=== PATIENT | male | born 1975 | race Caucasian/White ===

== ENCOUNTER 2019-11-01 19:48 | Inpatient (IN) | payer BC ==
[~2019-11-01] VITALS: Ht 185.4 cm; Wt 93.4 kg
--- NOTE | 2019-11-01 20:05 | NUR ---
PT PRESENTED TO THE ER WITH A C/O FLU LIKE SYMPTOMS, DIZZINESS, WEAKNESS, NAUSEA. PT WAS TRIAGED AND TAKEN TO ER #2. PT WAS ASSISTED BY SECURITY FROM THE CAR TO TRIAGE. PT WAS PLACED ON THE MONITOR AND CONTINUOUS PULSE OX. PT IS C/O SINUS CONGESTION. PT STATED THAT HE FELT LIKE IT WAS HARD TO BREATHE. BILATERAL BREATH SOUNDS NOTED. PT'S O2 SAT IS 94% AND WAS PLACED ON 2L O2 VIA NC. Rosette MARIN PA-C IS AWARE.
[2019-11-01] MEDS ORDERED: ACETAMINOPHEN ES 500 MG TABLET ONE (20:12)
[2019-11-01] MEDS ORDERED: MECLIZINE HCL 25 MG TABLET ONE (20:12)
[2019-11-01] MEDS ORDERED: ONDANSETRON HCL/PF 4 MG/2 ML VIAL ONE ×2 (20:12→23:12)
--- NOTE | 2019-11-01 20:13 | NUR ---
CXR IN PROGRESS AT THE BEDSIDE.
--- NOTE | 2019-11-01 20:20 | NUR ---
IV STARTED AND PT IS REC'ING MEDICATION ORDERED.
[2019-11-01] MEDS ORDERED: ACETAMINOPHEN ES 500 MG TABLET PO ONE (20:30)
[2019-11-01] MEDS ORDERED: MECLIZINE HCL 12.5 MG TABLET PO ONE (20:30)
[2019-11-01] MEDS ORDERED: IV NS 0.9% 1,000 ML BAG IV ONE ×3 (20:30→23:30)
[2019-11-01] MEDS ORDERED: ONDANSETRON HCL/PF 4 MG/2 ML VIAL IVP ONE (20:30)
[2019-11-01] MEDS ORDERED: hydrALAZINE HCL IV 20 MG VIAL ONE (21:48)
[2019-11-01] MEDS ORDERED: hydrALAZINE HCL IV 20 MG VIAL IV ONE (22:00)
--- NOTE | 2019-11-01 22:03 | NUR ---
PT'S DAD, ENEIDA, CAN BE REACHED AT
--- NOTE | 2019-11-01 22:03 | NUR ---
ENVIRONMENTAL SCIENTIST IS AT THE BEDSIDE.
--- NOTE | 2019-11-01 22:10 | NUR ---
[place]
--- NOTE | 2019-11-01 22:11 | NUR ---
CALLING PT'S FATHER AT PT'S REQUEST.
[2019-11-01 22:12] LABS: BASOPHILS % (AUTO) 0.9 % (0.0-2.0); HEMATOCRIT 41 % (39-51); LYMPHOCYTES # (AUTO) 0.3 /CMM (0.8-4.8); LYMPHOCYTES % (AUTO) 7.5 % (20.0-44.0); MEAN CORPUSCULAR HGB CONC 34 g/dl (31.0-36.0); MEAN CORPUSCULAR VOLUME 91 fL (80-96); MONOCYTES # (AUTO) 0.4 /CMM (0.1-1.30); MONOCYTES % (AUTO) 8.7 % (2.0-12.0); NEUTROPHILS # (AUTO) 3.8 /CMM (1.8-8.9); NEUTROPHILS % (AUTO) 82.9 % (43.0-81.0); PLATELET COUNT (AUTO) 128 /CMM (150-450); RED BLOOD CELL COUNT(AUTO) 4.53 MIL/uL (4.5-6.0); WHITE BLOOD COUNT (AUTO) 4.5 K/uL (4.3-11.0)
[2019-11-01 22:19] LABS: CREATININE 0.9 mg/dL (0.6-1.3); POTASSIUM 4.6 mmol/L (3.5-5.1)
[2019-11-01] MEDS ORDERED: IBUPROFEN 600 MG TABLET PO ONE (22:56)
[2019-11-01] MEDS ORDERED: oxyCODONE/APAP (5/325 MG) 1 UDTAB TABLET ONE (23:12)
[2019-11-01] MEDS ORDERED: LORAZEPAM INJ 2 MG/ML VIAL ONE (23:13)
[2019-11-01] MEDS ORDERED: ONDANSETRON HCL/PF 4 MG/2 ML VIAL IV ONE (23:30)
[2019-11-01] MEDS ORDERED: LORAZEPAM INJ 2 MG/ML VIAL IV ONE (23:30)
[2019-11-01] MEDS ORDERED: oxyCODONE/APAP (5/325 MG) 1 UDTAB TABLET PO ONE (23:30)
--- NOTE | 2019-11-01 23:57 | NUR ---
PT HAS PINK SKIN DISCOLORATION ON ABD AND CHEST AND LEFT HAND TO THE WRIST. B CELESTE MARIN. PT'S ORAL TEMP IS 100.2F
[2019-11-02] MEDS ORDERED: OSELTAMIVIR PHOSPHATE 75 MG CAPSULE ONE (00:13)
[2019-11-02 00:29] LABS: APPEARANCE,URINE Clear (CLEAR); BILIRUBIN,URINE Negative (NEGATIVE); BLOOD, URINE Negative Ery/uL (NEGATIVE); COLOR,URINE Yellow (YELLOW); KETONES,URINE Negative (NEGATIVE); LEUKOCYTE ESTERASE ,URINE Negative (NEGATIVE); NITRITE, URINE Negative (NEGATIVE); PH,URINE 7.5 (5.0-8.0); PROTEIN,URINE Negative (NEGATIVE); UGLUCOSE Negative (NEGATIVE); UROBILINOGEN,URINE 0.2 EU/dL (0.2)
[2019-11-02] MEDS ORDERED: OSELTAMIVIR PHOSPHATE 75 MG CAPSULE PO ONE (00:30)
[2019-11-02] MEDS ORDERED: LABETALOL HCL IV 100MG VIAL ONE (00:49)
--- NOTE | 2019-11-02 00:57 | NUR ---
BED ASSIGNMENT 108
--- NOTE | 2019-11-02 00:58 | NUR ---
PT'S BP IS STILL ELEVATED AND PT IS STILL TACHY. B CELESTE MARIN IS AWARE.
[2019-11-02] MEDS ORDERED: LABETALOL HCL IV 100MG VIAL IV ONE (01:00)
--- NOTE | 2019-11-02 01:28 | NUR ---
CALLED REPORT TO LUCILLE RN. RN IS NOT AVAILABLE.
[2019-11-02] MEDS ORDERED: MAGNESIUM HYDROXIDE 30 ML UDC PO PRN (01:30)
[2019-11-02] MEDS ORDERED: ONDANSETRON HCL/PF 4 MG/2 ML VIAL IVP PRN (01:30)
[2019-11-02] MEDS ORDERED: Z GUARD REMEDY 2 OZ OINT TP PRN (01:30)
[2019-11-02] MEDS ORDERED: MAG HYDROX/AL HYDROX/SIMETH 30 ML UDC PO PRN (01:30)
--- NOTE | 2019-11-02 02:03 | NUR ---
REPORT GIVEN TO MAIKEL SLAUGHTER BY DEBRA, RN
[2019-11-02 02:15] VITALS: BP 123/86
--- NOTE | 2019-11-02 02:15 | NUR ---
RECIEVED PATIENT IN NO ACUTE DISTRESS IN BED. PATIENT IS A/O X 4 AND ABLE TO MAKE NEEDS KNOWN. PATIENT HAS STEADY GAIT. PATIENT IS ON O2 VIA NASAL CANNULA AT 2LPM AND TOLERATING WELL. PATIENT IS NOT C/O ANY SOB, DIFFICULTY BREATHING OR PAIN AT THIS TIME. PATIENT HAS ABNORMAL LUNG SOUNDS IN ALL MORAN. PATINET HAS LEFT AC 18G THAT IS CLEAN DRY INTACT AND PATENT WITH SALINE FLUSH. BED IN LOW LOCK POSITION WITH RAILS UP X 2. CALL LIGHT WITHIN REACH AND ALL SAFETY MEASURES ENSURED AND CARRIED OUT. WILL CONTINUE TO MONITOR PATIENT.
[2019-11-02] MEDS: IV NS 0.9% 1,000 ML IV PRN ×2 (02:36→18:23)
[2019-11-02 04:00] VITALS: BP 121/85
[2019-11-02] MEDS ORDERED: ALBUTEROL HALF STRENGTH 1.25 MG/3 ML VIAL.NEB NEB SCH (07:35)
[2019-11-02] MEDS ORDERED: IPRATROPIUM NEB FS 0.5 MG/2.5 ML AMPUL.NEB NEB SCH (07:35)
[2019-11-02 08:00] VITALS: BP_SYST 142; BP_DIAS 89; BP_DIAS 99
--- NOTE | 2019-11-02 08:00 | NUR ---
TELE1/RN AM SHIFT INITIAL NOTES RECEIVED PT AWAKE SITTING IN BED, A/O X 4, PT DENIES HAVING SOB, ON 2L O2 VIA N/C SATURATING @ 96%, RESPIRATIONS EVEN & UNLABORED, LUNG SOUNDS RHONCHI. ON TELE WITH SINUS TACHY, HR 107. WITH ON GOING IV INFUSION OF NS @ 75CC/HR, IV SITE PATENT WITH NO S/S OF INFECTION. PT IS COMFORTABLE, SCHEDULED AM MEDS TO BE GIVEN. CL WITHIN REACHED AND SAFETY MAINTAINED. ON GOING MONITORING.
[2019-11-02] MEDS ORDERED: VENL150C58 PO (08:31)
[2019-11-02] MEDS ORDERED: ALBU18HF2 IH (08:31)
[2019-11-02] MEDS: AMLODIPINE BESYLATE 2.5 MG TABLET PO SCH (08:44)
[2019-11-02] MEDS: CARVEDILOL 3.125 MG TABLET PO SCH ×2 (08:44→20:44)
[2019-11-02] MEDS: OSELTAMIVIR PHOSPHATE 75 MG CAPSULE PO SCH ×2 (08:44→17:24)
[2019-11-02] MEDS: LISINOPRIL (5MG) 5 MG TABLET PO SCH (08:45)
[2019-11-02] MEDS: LORAZEPAM INJ 2 MG/ML VIAL IV PRN ×2 (09:48→22:14)
--- NOTE | 2019-11-02 11:52 | NUR ---
WOUND CARE CONSULT: PT PRESENTS WITH DRY ABRASIONS TO NOSE, PRESENT ON ADMISSION. PT IS CONTINENT AND INDEPENDENT WITH BED MOBILITY. WILL SEE PRN. CURRENT NHEA SCORE IS 20.
[2019-11-02 12:00] VITALS: BP 147/88
[2019-11-02] MEDS: IPRATROPIUM NEB FS 0.5 MG/2.5 ML AMPUL.NEB NEB PRN (12:03)
[2019-11-02] MEDS: ALBUTEROL HALF STRENGTH 1.25 MG/3 ML VIAL.NEB NEB PRN (12:03)
[2019-11-02] MEDS: ACETAMINOPHEN 325 MG TABLET PO PRN (12:07)
[2019-11-02 16:00] VITALS: BP 139/91
[2019-11-02] MEDS: HYDROCODONE/APAP 5/325MG 1 EACH TABLET PO PRN ×2 (18:12→22:07)
--- NOTE | 2019-11-02 19:18 | NUR ---
RN OPENING NOTES RECEIVED PATIENT SLEEPING IN BED, BUT EASY TO AROUSE, A/OX4, APPEARS SLEEPY. PT DENIES ANY PAIN OR SOB AT THE MOMENT. ON 2L O2 VIA N/C, RESPIRATIONS EVEN & UNLABORED. WITH ON GOING IVF OF NS @ 75CC/HR, IV SITE FLUSHING AND PATENT, NO S/S OF INFECTION. SAFETY MEASURES IN PLACE; CL WITHIN REACH, SIDE RAILS UP X2, BED LOCKED AND IN LOWEST POSITION. DROPLET PRECAUTIONS IN PLACE. WILL CONT TO MONITOR CLOSELY.
--- NOTE | 2019-11-02 19:37 | NUR ---
MS1/RN AM SHIFT END NOTES NO ACUTE CHANGE OF CONDITION NOTED DURING THE SHIFT. ALL NEEDS MET. PT ENDORSED TO PM NURSE TO CONTINUE CARE. CL WITHIN REACHED AND SAFETY MAINTAINED.
[2019-11-02 20:00] VITALS: BP 145/97
--- NOTE | 2019-11-02 20:19 | NUR ---
GAVE REPORT TO MAIKEL BALDERRAMA FOR JUANITA.
--- NOTE | 2019-11-02 20:20 | NUR ---
RN NOTES, RECIVED PATIENT FROM ROOSEVELT KO FOR CONTINUATION OF CARE.
[2019-11-03 02:00] VITALS: BP 154/93
[2019-11-03 04:00] VITALS: BP_SYST 157; BP_SYST 159; BP_DIAS 106; BP_DIAS 99
[2019-11-03] MEDS: HYDROCODONE/APAP 5/325MG 1 EACH TABLET PO PRN (04:40)
[2019-11-03] MEDS: LORAZEPAM INJ 2 MG/ML VIAL IV PRN ×3 (04:41→17:54)
[2019-11-03 06:24] LABS: BASOPHILS % (AUTO) 0.1 % (0.0-2.0); EOSINOPHILS % (AUTO) 0.1 % (0.0-6.0); HEMATOCRIT 40 % (39-51); HEMOGLOBIN 13.6 g/dL (13.5-17.5); LYMPHOCYTES # (AUTO) 0.7 /CMM (0.8-4.8); LYMPHOCYTES % (AUTO) 11.9 % (20.0-44.0); MEAN CORPUSCULAR HGB CONC 34 g/dl (31.0-36.0); MEAN CORPUSCULAR VOLUME 90 fL (80-96); MONOCYTES # (AUTO) 0.5 /CMM (0.1-1.30); MONOCYTES % (AUTO) 7.3 % (2.0-12.0); NEUTROPHILS # (AUTO) 5.1 /CMM (1.8-8.9); NEUTROPHILS % (AUTO) 80.6 % (43.0-81.0); PLATELET COUNT (AUTO) 127 /CMM (150-450); RED BLOOD CELL COUNT(AUTO) 4.42 MIL/uL (4.5-6.0); WHITE BLOOD COUNT (AUTO) 6.3 K/uL (4.3-11.0)
[2019-11-03 06:36] LABS: CALCIUM, SERUM 8.1 mg/dL (8.5-10.1); CREATININE 0.7 mg/dL (0.6-1.3); MAGNESIUM 1.6 mg/dL (1.8-2.4); PHOSPHORUS 1.5 mg/dL (2.5-4.9); POTASSIUM 4.1 mmol/L (3.5-5.1)
--- NOTE | 2019-11-03 06:45 | NUR ---
RN NOTES, NO SIGNIFICANT CHANGE IN CONDITION DURING THE NIGHT, BREATHING EVEN ND UNLABORED, NO SOB/ACUTE DISTRESS NOTED, WITH STABLE VS, WILL ENDORSE CONTINUITY OF CARE TO ONCOMING NURSE.
[2019-11-03 06:46] LABS: THYROID STIMULATING HORMONE 1.044 uIU/mL (0.358-3.74)
[2019-11-03 08:00] VITALS: BP 141/96
--- NOTE | 2019-11-03 08:10 | NUR ---
MS RN NOTES PATIENT RECEIVED RESTING INSIDE ROOM. SLEEPING, AROUSABLE THROUGH VERBAL AND TACTILE STIMULI. NO ACUTE DISTRESS. MAINTAINED ISOLATION PRECAUTIONS. SAFETY PRECAUTIONS IN PLACE. WILL CONTINUE TO MONITOR. BED LOCKED AND IN LOW POSITION. BILATERAL UPPER SIDE RAILS UP AND LOCKED. CALL LIGHT WITHIN EASY REACH
[2019-11-03] MEDS: LISINOPRIL (5MG) 5 MG TABLET PO SCH (08:54)
[2019-11-03] MEDS: IV NS 0.9% 1,000 ML IV PRN (08:54)
[2019-11-03] MEDS: AMLODIPINE BESYLATE 2.5 MG TABLET PO SCH (08:54)
[2019-11-03] MEDS: CARVEDILOL 3.125 MG TABLET PO SCH ×2 (08:54→21:46)
[2019-11-03] MEDS: OSELTAMIVIR PHOSPHATE 75 MG CAPSULE PO SCH ×2 (08:55→16:36)
[2019-11-03] MEDS: Magnesium 1GM/D5W 100ML PREMIX 100 ML IV SCH ×2 (11:08→12:28)
[2019-11-03 12:00] VITALS: BP 146/99
[2019-11-03] MEDS ORDERED: K PHOS NEUTRAL 250 MG TABLET PO ONE (13:00)
[2019-11-03] MEDS: ALBUTEROL HALF STRENGTH 1.25 MG/3 ML VIAL.NEB NEB PRN ×2 (14:11→20:28)
[2019-11-03] MEDS: IPRATROPIUM NEB FS 0.5 MG/2.5 ML AMPUL.NEB NEB PRN ×2 (14:11→20:28)
[2019-11-03 16:00] VITALS: BP 155/90
[2019-11-03] MEDS: ACETAMINOPHEN 325 MG TABLET PO PRN (17:54)
--- NOTE | 2019-11-03 18:23 | NUR ---
MS RN NOTES PATIENT RESTING INSIDE ROOM. AWAKE, A/O X 3. NO ACUTE DISTRESS. PATIENT KEPT CLEAN, DRY AND COMFORTABLE. MAINTAINED ISOLATION PRECAUTIONS. SAFETY PRECAUTIONS IN PLACE. WILL ENDORSE TO INCOMING SHIFT FOR JUANITA. BED LOCKED AND IN LOW POSITION. BILATERAL UPPER SIDE RAILS UP AND LOCKED. CALL LIGHT WITHIN EASY REACH
--- NOTE | 2019-11-03 19:35 | NUR ---
RN OPENING NOTES [facility] FOUND Pt AWAKE, RESTING IN BED. NO S/S OF ACUTE DISTRESS OR SOB NOTED. Pt IS A/OX4, VERBAL, ABLE TO MAKE NEEDS KNOWN. ON ISO FOR + FLU. IV ACCESS ON LAC #18G, IVF NS @75ML/HR. Pt REQUESTING FOR PRN BREATHING TREATMENT. WILL NOTIFY RT. SAFETY MEASURES IN PLACE. BED LOW, LOCKED, HOB ELEVATED, SIDE RAILS UP, CALL LIGHT AND BEDSIDE TABLE WITHIN REACH. WILL CONTINUE TO MONITOR Pt's CONDITION AND SAFETY THROUGHOUT THE NIGHT.
[2019-11-03 20:00] VITALS: BP 154/93
--- NOTE | 2019-11-03 22:10 | NUR ---
RN NOTES PER Pt REPORT DID NOT HAVE A BM FOR THE PAST 3 DAYS. ADMINISTERED PRN MOM 30ML PO.
[2019-11-04] MEDS: LORAZEPAM INJ 2 MG/ML VIAL IV PRN ×3 (00:25→19:55)
[2019-11-04] MEDS: IPRATROPIUM NEB FS 0.5 MG/2.5 ML AMPUL.NEB NEB PRN (02:04)
[2019-11-04] MEDS: ALBUTEROL HALF STRENGTH 1.25 MG/3 ML VIAL.NEB NEB PRN (02:04)
[2019-11-04] MEDS: HYDROCODONE/APAP 5/325MG 1 EACH TABLET PO PRN ×3 (02:45→22:33)
[2019-11-04] MEDS: ALBUTEROL HALF STRENGTH 1.25 MG/3 ML VIAL.NEB NEB SCH ×6 (03:30→23:52)
[2019-11-04] MEDS: IPRATROPIUM NEB FS 0.5 MG/2.5 ML AMPUL.NEB NEB SCH ×6 (03:30→23:52)
[2019-11-04 04:00] VITALS: BP 150/90
[2019-11-04] MEDS: IV NS 0.9% 1,000 ML IV PRN ×2 (04:56→22:29)
[2019-11-04 06:34] LABS: BASOPHILS % (AUTO) 0.1 % (0.0-2.0); EOSINOPHILS % (AUTO) 0.2 % (0.0-6.0); HEMATOCRIT 41 % (39-51); HEMOGLOBIN 14.3 g/dL (13.5-17.5); LYMPHOCYTES # (AUTO) 0.9 /CMM (0.8-4.8); LYMPHOCYTES % (AUTO) 14.2 % (20.0-44.0); MEAN CORPUSCULAR HGB CONC 35 g/dl (31.0-36.0); MEAN CORPUSCULAR VOLUME 88 fL (80-96); MONOCYTES # (AUTO) 0.6 /CMM (0.1-1.30); MONOCYTES % (AUTO) 10.4 % (2.0-12.0); NEUTROPHILS # (AUTO) 4.7 /CMM (1.8-8.9); NEUTROPHILS % (AUTO) 75.1 % (43.0-81.0); PLATELET COUNT (AUTO) 164 /CMM (150-450); RED BLOOD CELL COUNT(AUTO) 4.62 MIL/uL (4.5-6.0); WHITE BLOOD COUNT (AUTO) 6.2 K/uL (4.3-11.0)
[2019-11-04 06:49] LABS: CALCIUM, SERUM 7.9 mg/dL (8.5-10.1); CREATININE 0.8 mg/dL (0.6-1.3); MAGNESIUM 1.9 mg/dL (1.8-2.4); POTASSIUM 4.1 mmol/L (3.5-5.1)
--- NOTE | 2019-11-04 07:25 | NUR ---
MS RN NOTES PATIENT IN BED ALERT ORIENTED X 3. NO ACUTE DISTRESS NOTED. BREATHING UNLABORED. NO SOB NOTED. SAFETY MEASURES IN PLACE. CALL LIGHT WITHIN REACH . WILL CONTINUE TO MONITOR ACCORDINGLY.
--- NOTE | 2019-11-04 07:30 | NUR ---
RN CLOSING NOTES NO SIGNIFICANT CHANGES IN Pt's CONDITION. Pt REMAINS STABLE PER BASELINE. NO S/S OF ACUTE DISTRESS OR SEVERE SOB NOTED DURING THE SHIFT. ALL NEEDS MET AND ATTENDED TO. SAFETY MEASURES IN PLACE. ENDORSED TO DAYSHIFT RN FOR Pt's JUANITA.
[2019-11-04 08:00] VITALS: BP 147/97
[2019-11-04] MEDS: LISINOPRIL (5MG) 5 MG TABLET PO SCH (09:21)
[2019-11-04] MEDS: CARVEDILOL 3.125 MG TABLET PO SCH ×2 (09:22→20:41)
[2019-11-04] MEDS: OSELTAMIVIR PHOSPHATE 75 MG CAPSULE PO SCH ×2 (09:22→17:18)
[2019-11-04] MEDS: AMLODIPINE BESYLATE 2.5 MG TABLET PO SCH (09:22)
[2019-11-04] MEDS: VENLAFAXINE XR 150 MG CAP.SR.24H PO SCH (10:11)
[2019-11-04 12:00] VITALS: BP 134/94
--- NOTE | 2019-11-04 19:00 | NUR ---
MS RN NOTES PATIENT IN BED ALERT ORIENTED X 3. NO ACUTE DISTRESS NOTED. BREATHING UNLABORED. NO SOB NOTED. NEEDS ATTENDED AND ANTICIPATED. KEPT COMFORTABLE. SAFETY MEASURES IN PLACE. CALL LIGHT WITHIN REACH . WILL ENDORSE TO NIGHT NURSE FOR CONTINUITY OF CARE.
--- NOTE | 2019-11-04 19:20 | NUR ---
PLAYGROUND AIDE: RECEIVED REPORT FROM JOE KO. PT IN BED, AWAKE, A/O X2-3, ON 2L OXYGEN VIA NC. RESPIRATIONS EVEN AND UNLABORED. ON ISOLATION INFLUENZA B, DROPLET PRECAUTION. PPE UTILIZED. IV ACCESS PATENT AND FLUSHING WELL, INFUSING WITH NS AT 75ML/HR. PT ABLE TO AMBULATE WITH STEADY GAIT WITH BATHROOM PRIVILEGES. REQUESTING FOR HIS ATIVAN. DISCUSSED PLAN OF CARE TONIGHT. PT REFUSING SCD, EDUCATION PROVIDED TO PT.
--- NOTE | 2019-11-04 19:56 | NUR ---
PRN ATIVAN: PT C/O ANXIETY, PRN ATIVAN 1 MG IVP ADMINISTERED TO PT AT THIS TIME. WILL CONTINUE TO MONITOR AND REASSESS. BED ALARM SECURED, PLACED ON FALL PRECAUTIONS.
[2019-11-04 20:00] VITALS: BP 162/96
--- NOTE | 2019-11-04 22:34 | NUR ---
prn norco: pt c/o throbbing head ache 06/09, requesting for norco, prn norco 5/325 mg tab po administered to pt at this time, will continue to monitor and reassess pt.
[2019-11-04 22:41] VITALS: BP 164/102
[2019-11-04 23:22] VITALS: BP 142/104
--- NOTE | 2019-11-04 23:27 | NUR ---
rn notes: pt refusing oxygen, stated it doesnt do anything for him, spo2 on ra is 90-91%. on 2l oxygen pt is 94% spo2. notified precipitation equipment tender md regarding elevated bp, and pt's refusal for oxygen. per md just keep rechecking blood pressure. as bp 142 does not need to be treated, totally inappropriate to have prn for that bp as worded by md. relayed to rn darlyn schilling. will continue monitoring pt.
[2019-11-05 00:30] VITALS: BP 196/98
[2019-11-05 04:00] VITALS: BP 150/86
[2019-11-05] MEDS: ALBUTEROL HALF STRENGTH 1.25 MG/3 ML VIAL.NEB NEB SCH ×6 (04:09→23:40)
[2019-11-05] MEDS: IPRATROPIUM NEB FS 0.5 MG/2.5 ML AMPUL.NEB NEB SCH ×6 (04:09→23:40)
[2019-11-05] MEDS: LORAZEPAM INJ 2 MG/ML VIAL IV PRN (05:01)
--- NOTE | 2019-11-05 05:02 | NUR ---
prn ativan: pt c/o anxiety, requesting for ativan, prn ativan 1 mg ivp administered to pt at this time.
[2019-11-05] MEDS: HYDROCODONE/APAP 5/325MG 1 EACH TABLET PO PRN ×3 (06:39→21:14)
--- NOTE | 2019-11-05 06:40 | NUR ---
prn norco: pt c/o temporal throbbing head ache, 06/09 requesting for norco, prn norco 5/325 mg tab po administered to pt at this time, will continue to monitor and reassess.
[2019-11-05 06:43] LABS: BASOPHILS % (AUTO) 0.2 % (0.0-2.0); EOSINOPHILS % (AUTO) 1.2 % (0.0-6.0); HEMATOCRIT 38 % (39-51); HEMOGLOBIN 13.3 g/dL (13.5-17.5); LYMPHOCYTES % (AUTO) 17.6 % (20.0-44.0); MEAN CORPUSCULAR HGB CONC 35 g/dl (31.0-36.0); MEAN CORPUSCULAR VOLUME 88 fL (80-96); MONOCYTES # (AUTO) 0.7 /CMM (0.1-1.30); MONOCYTES % (AUTO) 13.4 % (2.0-12.0); NEUTROPHILS # (AUTO) 3.7 /CMM (1.8-8.9); NEUTROPHILS % (AUTO) 67.6 % (43.0-81.0); PLATELET COUNT (AUTO) 182 /CMM (150-450); RED BLOOD CELL COUNT(AUTO) 4.35 MIL/uL (4.5-6.0); WHITE BLOOD COUNT (AUTO) 5.4 K/uL (4.3-11.0)
--- NOTE | 2019-11-05 06:49 | NUR ---
end of shift report: pt in bed, refusing oxygen , spo2 on ra 91%. breathing tx received as scheduled. iv access remains patent and flushing well, infusing with ivf as ordered. no s/s of iv infiltration noted. prn norco administered for c/o head ache, prn ativan given per c/o anxiety. kept on respiratory/droplet isolation. ppe utilized. vs remains stable, needs attended. safety precautions for fall remains engaged, call light in reach, will endorse to day rn for continuity of care.
[2019-11-05 07:24] LABS: CALCIUM, SERUM 8.3 mg/dL (8.5-10.1); CREATININE 0.7 mg/dL (0.6-1.3); POTASSIUM 3.6 mmol/L (3.5-5.1)
--- NOTE | 2019-11-05 07:30 | NUR ---
RN NOTES RECEIVED PATIENT IN BED RESTING COMFORTABLY IN MODERATE HIGH BACK REST. A/O X4. ON ISOLATION PRECAUTION, ON OXYGEN 2LPM VIA NC, NO SIGNS OF DISTRESS NOTED AT THIS TIME. IV FLUIDS ON LAC #18 WITH NS RUNNING @ 75 ML/ HR. PATENT AND INTACT. SAFETY MEASURES IN PLACE BED IN LOW LOCKED POSITION WITH SIDE RAILS UPX2. CALL LIGHT WITHIN REACH. WILL CONTINUE TO MONITOR.
[2019-11-05 08:00] VITALS: BP 157/90
[2019-11-05] MEDS: VENLAFAXINE XR 150 MG CAP.SR.24H PO SCH (08:24)
[2019-11-05] MEDS: OSELTAMIVIR PHOSPHATE 75 MG CAPSULE PO SCH ×2 (08:24→16:19)
[2019-11-05] MEDS: AMLODIPINE BESYLATE 2.5 MG TABLET PO SCH (08:25)
[2019-11-05] MEDS: CARVEDILOL 3.125 MG TABLET PO SCH ×2 (08:25→21:15)
[2019-11-05] MEDS: LISINOPRIL (5MG) 5 MG TABLET PO SCH (08:25)
[2019-11-05 12:00] VITALS: BP 149/84
--- NOTE | 2019-11-05 14:00 | NUR ---
RN NOTES PATIENT ENDORSED TO MAIKEL RIVAS FOR JUANITA.
[2019-11-05 16:00] VITALS: BP 131/89
--- NOTE | 2019-11-05 17:10 | NUR ---
appeared fatigued, complained of " generalized aching,asking for NORCO, one po given, discomfort 05/10. will reassess at 1720
[2019-11-05] MEDS: ALBUTEROL HALF STRENGTH 1.25 MG/3 ML VIAL.NEB NEB PRN (18:11)
[2019-11-05] MEDS: IPRATROPIUM NEB FS 0.5 MG/2.5 ML AMPUL.NEB NEB PRN (18:12)
--- NOTE | 2019-11-05 19:20 | NUR ---
MS RN OPENING NOTES: RECEIVED PATIENT RESTING IN BED. ASLEEP AND EASILY AROUSABLE. A/O X4. NO COMPLAIN OF PAIN. PATIENT IS COMFORTABLE. NO SOB NOTED. NOT IN RESPIRATORY DISTRESS. CALL LIGHT WITHIN REACH. BED IN LOWEST AND LOCKED POSITION. CONTACT ISOLATION AND RESPIRATORY ISOLATION, SIGNS AND ISOLATION CART AVAILABLE.
[2019-11-05 20:00] VITALS: BP 154/90
--- NOTE | 2019-11-05 21:27 | NUR ---
patient complained of nasal congestion and difficulty of breathing, patient is asking for breathing treatment, called the RT ROLANDO. O2 at 3L/min given. Head of bed elevated. will continue to monitor.
[2019-11-06] MEDS: HYDROCODONE/APAP 5/325MG 1 EACH TABLET PO PRN ×4 (03:25→18:12)
[2019-11-06] MEDS: ALBUTEROL HALF STRENGTH 1.25 MG/3 ML VIAL.NEB NEB SCH ×6 (03:45→23:17)
[2019-11-06] MEDS: IPRATROPIUM NEB FS 0.5 MG/2.5 ML AMPUL.NEB NEB SCH ×6 (03:45→23:17)
[2019-11-06 04:00] VITALS: BP 141/84
[2019-11-06] MEDS: LORAZEPAM INJ 2 MG/ML VIAL IV PRN ×3 (04:34→22:43)
--- NOTE | 2019-11-06 06:03 | NUR ---
MS RN CLOSING NOTES: PATIENT IS RESTING COMFORTABLY IN BED AT THIS TIME. A/O X4. NO ACUTE EVENTS OVERNIGHT. NO SOB NOTED. MEDICATED WITH NORCO TAB X2 DURING SHIFT, EFFECTIVE. AMBULATORY. VOIDING GOOD. CALL LIGHT WITHIN REACH. V/S AND O2 SAT WNL. BED IN LOWEST AND LOCKED POSITION. DROPLET ISOLATION PRECAUTION MAINTAINED AT ALL TIMES.
[2019-11-06 06:41] LABS: BASOPHILS % (AUTO) 0.2 % (0.0-2.0); EOSINOPHILS % (AUTO) 1.5 % (0.0-6.0); HEMATOCRIT 40 % (39-51); HEMOGLOBIN 13.6 g/dL (13.5-17.5); LYMPHOCYTES % (AUTO) 13.4 % (20.0-44.0); MEAN CORPUSCULAR HGB CONC 35 g/dl (31.0-36.0); MEAN CORPUSCULAR VOLUME 89 fL (80-96); MONOCYTES # (AUTO) 1.2 /CMM (0.1-1.30); MONOCYTES % (AUTO) 15.3 % (2.0-12.0); NEUTROPHILS # (AUTO) 5.4 /CMM (1.8-8.9); NEUTROPHILS % (AUTO) 69.6 % (43.0-81.0); PLATELET COUNT (AUTO) 272 /CMM (150-450); RED BLOOD CELL COUNT(AUTO) 4.46 MIL/uL (4.5-6.0); WHITE BLOOD COUNT (AUTO) 7.7 K/uL (4.3-11.0)
--- NOTE | 2019-11-06 07:00 | NUR ---
RN AM SHIFT NOTE PATIENT ALERT AND ORIENTED X4. IV PATENT AND INTACT. CONTINENT, ABLE TO AMBULATE TO THE BATHROOM . SIDE RAILS UP BED IN LOW POSITION. ALL NEEDS MET AT THIS TIME. NO COMPLAINTS OF PAIN. CONTINUE TO MONITOR.
[2019-11-06 07:21] LABS: CALCIUM, SERUM 8.5 mg/dL (8.5-10.1); CREATININE 0.6 mg/dL (0.6-1.3)
[2019-11-06 08:00] VITALS: BP 150/96
[2019-11-06] MEDS: CARVEDILOL 3.125 MG TABLET PO SCH ×2 (08:53→21:12)
[2019-11-06] MEDS: LISINOPRIL (5MG) 5 MG TABLET PO SCH (08:53)
[2019-11-06] MEDS: OSELTAMIVIR PHOSPHATE 75 MG CAPSULE PO SCH ×2 (08:54→17:59)
[2019-11-06] MEDS: AMLODIPINE BESYLATE 2.5 MG TABLET PO SCH (08:54)
[2019-11-06] MEDS: VENLAFAXINE XR 150 MG CAP.SR.24H PO SCH (08:54)
--- NOTE | 2019-11-06 09:00 | NUR ---
RN NOTE PATIENT COMPLAING OF JOINT PAIN, ANXIOUS AND POSITIVE FOR AMPHETAMINES. GAVE ANXITETY MEDICATION AND PAIN MEDS ORDERD. FATHER IS MD AND HAS BEEN CALLING CONCERNED WITH SON BEING DISCHARGED. MD WAITING TO CONFIRM IF PATIENT HOSPITAL STAY FOR ONE MORE NIGHT IS APPROVED.
[2019-11-06 09:44] LABS: BAND % (MANUAL) 1 % (0.0-5.0); EOSINOPHILS % (MANUAL) 1 % (0-4); LYMPHOCYTES % (MANUAL) 12 % (16-48); MONOCYTES % (MANUAL) 23 % (0-11.0); NEUTROPHILS % (MANUAL) 63 (42-76)
--- NOTE | 2019-11-06 13:00 | NUR ---
RN NOTE PATIENT COMPLAINS OF PAIN RELATED TO INFLUENZA B. PAIN MEDICATION IS EFFECTIVE PER MD ORDER. PATIENT ISOLATION PRECAUTIONS IN PLACE. HAS BEEN SLEEPING ALL DAY. POOR APPETITIE, VERY LETHARGIC. ALERT ORIENTED AND COOPERATIVE. BED IN LOW POSITION, CALL LIGHT WITHIN REACH.
--- NOTE | 2019-11-06 17:00 | NUR ---
RN NO D/C NOTE RN SPOKE W MD REGARDING D/C. MD INFORMED PATIENT HE MAY BE RESPONSIBLE FOR THE BILL IF HE DECIDES TO STAY OVERNIGHT. RN INFORMED CASE MANAGMENT WE ARE KEEPING PATIENT PER MD ORDER. PATIENT IS AWARE OF POSSIBLE BILL AND IS REQUESTING TO STAY. MD WILL FOLLOW UP TOMORROW WHEN PATIENT IS MORE STABLE. HYPONATERMIA AND INFLUENZA NOTED. FAMILY INVOLVED MD AND RN SPOKE WITH FATHER.
--- NOTE | 2019-11-06 19:48 | NUR ---
patient received ambulatory alert and oriented.
[2019-11-06 20:00] VITALS: BP 122/74
--- NOTE | 2019-11-06 21:15 | NUR ---
with complaints of headache 04/09 . informed that the medication is due at 2200. express understanding
[2019-11-06 22:00] VITALS: BP 151/91
--- NOTE | 2019-11-06 22:58 | NUR ---
with complaints of anxiety and requesting for lorazepam and given lorazepam 1 mg ivp. do not request for the pain medication .Dr Carrasco informed about the the persistent headache and is given [place] for it ,will not take Tenol as it do not relived the headache, has hard non productive to productive cough, claims ge do not eat well and poor fodd intake. with orders for cough medication and Ibuprofen and Tylenol for headache. but patient refused tylenol will try to offer the ibuprofen tab. as for the poor food intake will have to follow up for orders in am. will give milk of magnesia dose for constipation
--- NOTE | 2019-11-06 23:09 | NUR ---
with orders for discharge this morning to home self care but patient with all the problems he had of not eating well .will informin am.
[2019-11-06] MEDS ORDERED: GUAIFENESIN/CODEINE 10 ML UDC PO PRN (23:30)
--- NOTE | 2019-11-07 01:50 | NUR ---
ASLEEP.WITH CALL LIGHT WITHIN REACH
--- NOTE | 2019-11-07 02:39 | NUR ---
AWAKE WITH NO CMPLAINTS OF HEADACHE.
[2019-11-07] MEDS: ALBUTEROL HALF STRENGTH 1.25 MG/3 ML VIAL.NEB NEB SCH ×2 (03:37→07:40)
[2019-11-07] MEDS: IPRATROPIUM NEB FS 0.5 MG/2.5 ML AMPUL.NEB NEB SCH ×2 (03:37→07:40)
[2019-11-07 04:00] VITALS: BP 140/90
[2019-11-07] MEDS: HYDROCODONE/APAP 5/325MG 1 EACH TABLET PO PRN ×2 (04:14→08:46)
--- NOTE | 2019-11-07 04:16 | NUR ---
awake and complaints of headache 04/09/offered tylenol but refused , requester ativan dose or norco, norco dose given as the patients ativan is not yet due. cough medication is given
--- NOTE | 2019-11-07 07:00 | NUR ---
MS RN OPENING NOTE: RECEIVED PATIENT IN BED ASLEEP AND EASILY AROUSABLE. ALERT AND ORIENTED X4. WITH DROPLET PRECAUTIONS IN PLACE, STAFF AWARE AND COMPLIANCE OBSERVED. ON ROOM AIR AND TOLERATING WELL WITH NO SOB NOTED AND NOT IN ACUTE DISTRESS. IV SITE ON LEFT AC G18, SALINE LOCK. SITE PATENT, CLEAN AND DRY. HEADACHE STILL NOTED AND MEDICATION WILL BE GIVEN WHEN IT'S DUE. PATIENT FOR POSSIBLE DISCHARGE FOR TODAY AND HE IS AWARE OF THE PLAN. CALL LIGHT IN REACH, SIDE RAILS UP, LOCKED, LOW AND AT SEMI-CARLISLE'S POSITION. WILL CONTINUE TO MONITOR.
--- NOTE | 2019-11-07 07:42 | NUR ---
PATIENT ASLEEP.REPORT GIVEN TO THE DAY SHIFT RN THAT THE PATIENT HAS NO BM FOR 3 DAYS AND HAS POOR APPETITE AND STILL HAS RECURRENT HEADACHE, COUGH MEDICATION GIVEN FOR HARD NON PRODUCTIVE COUGH
[2019-11-07 08:45] VITALS: BP 136/93
[2019-11-07] MEDS: OSELTAMIVIR PHOSPHATE 75 MG CAPSULE PO SCH (08:45)
[2019-11-07] MEDS: CARVEDILOL 3.125 MG TABLET PO SCH (08:45)
[2019-11-07] MEDS: LISINOPRIL (5MG) 5 MG TABLET PO SCH (08:45)
[2019-11-07] MEDS: AMLODIPINE BESYLATE 2.5 MG TABLET PO SCH (08:45)
[2019-11-07] MEDS: VENLAFAXINE XR 150 MG CAP.SR.24H PO SCH (08:45)
--- NOTE | 2019-11-07 12:05 | NUR ---
MS [employer] APPLICATION DEVELOPER NOTE: PATIENT DISCHARGED TO HOME IN STABLE CONDITION, ACCOMPANIED BY FATHER, MR. MONIQUE. DISCHARGE INSTRUCTIONS GIVEN AND PATIENT VERBALIZED UNDERSTANDING, FORMS WERE SIGNED. PATIENT REFUSED EXIT SKIN ASSESSMENT AND REFUSED TO TAKE PICTURES OF THE ABRASION ON THE NOSE.
== END 2019-11-07 12:05 | disposition home or self-care (01) | DRG 194 ==
LOC: ER 19:50 → TELE1 11-02 01:01 → MEDSG1 11-02 11:28
PROVIDERS: ADMIT Family Medicine; ATTEND Family Medicine
DX: J10.1 Influenza due to other identified influenza virus with other respiratory manifestations (principal); E87.1 Hypo-osmolality and hyponatremia; R06.03 Acute respiratory distress; I10 Essential (primary) hypertension; E83.42 Hypomagnesemia; F41.9 Anxiety disorder, unspecified; F17.210 Nicotine dependence, cigarettes, uncomplicated
CPT/HCPCS: 36415; 70450-TC; 71045-TC; 80048-TC; 80061-TC; 80305; 81000-TC; 82962-TC; 83735-TC; 84100-TC; 84443-TC; 85025-TC; 87081-TC; 94799-TC; A6253; G0378; J0360; J2060; J2405; J3475; J3490; J7030; J8597

== ENCOUNTER 2019-11-28 21:10 | Emergency (ER) | payer BC ==
[~2019-11-28] VITALS: Ht 185.4 cm; Wt 95.3 kg
[~2019-11-28 21:10] MED LIST: ALBU18HF2 IH; VENL150C58 PO
--- NOTE | 2019-11-28 21:15 | NUR ---
CALLED FOR TRIAGE, NO ANSWER
--- NOTE | 2019-11-28 21:20 | NUR ---
CALLED FOR TRIAGE, NO ANSWER
--- NOTE | 2019-11-28 21:25 | NUR ---
CALLED FOR TRIAGE, NO ANSWER
--- NOTE | 2019-11-28 23:03 | NUR ---
AT THE BED SIDE
[2019-11-28 23:18] LABS: BASOPHILS % (AUTO) 0.4 % (0.0-2.0); HEMATOCRIT 43 % (39-51); HEMOGLOBIN 14.4 g/dL (13.5-17.5); LYMPHOCYTES # (AUTO) 2.2 /CMM (0.8-4.8); LYMPHOCYTES % (AUTO) 39.8 % (20.0-44.0); MEAN CORPUSCULAR HGB CONC 34 g/dl (31.0-36.0); MEAN CORPUSCULAR VOLUME 90 fL (80-96); MONOCYTES # (AUTO) 0.5 /CMM (0.1-1.30); NEUTROPHILS # (AUTO) 2.6 /CMM (1.8-8.9); NEUTROPHILS % (AUTO) 46.8 % (43.0-81.0); PLATELET COUNT (AUTO) 232 /CMM (150-450); WHITE BLOOD COUNT (AUTO) 5.6 K/uL (4.3-11.0)
[2019-11-28 23:26] LABS: CALCIUM, SERUM 9.4 mg/dL (8.5-10.1); CREATININE 1.1 mg/dL (0.6-1.3); POTASSIUM 4.1 mmol/L (3.5-5.1)
[2019-11-28] MEDS ORDERED: IV NS 0.9% 1,000 ML IV PRN (23:30)
--- NOTE | 2019-11-29 00:14 | NUR ---
FSBS:[id number] MD AWARE
[2019-11-29 00:54] VITALS: BP 134/75
== END 2019-11-29 00:55 | disposition home or self-care (01) ==
LOC: ER 21:12
DX: R42 Dizziness and giddiness (principal); F17.200 Nicotine dependence, unspecified, uncomplicated; Z79.899 Other long term (current) drug therapy
CPT/HCPCS: 36415; 71045; 80048; 82962; 85025; 93005; 96360; 99284; J7030

== ENCOUNTER 2022-12-28 23:59 | Emergency (ER) | payer BC, OTHER ==
[~2022-12-28] VITALS: Ht 185.4 cm; Wt 95.3 kg
[2022-12-29 00:13] VITALS: BP 148/89
[2022-12-29] MEDS ORDERED: FLUORESCEIN SODIUM OPHTH 1 EA STRIP ONE (00:16)
[2022-12-29] MEDS ORDERED: FLUORESCEIN SODIUM OPHTH 1 EA STRIP OP ONE (00:30)
[2022-12-29] MEDS ORDERED: TETRACAINE HCL 0.5% OPHTALMIC 15 ML BOTTLE OP ONE (00:30)
--- NOTE | 2022-12-29 00:38 | NUR ---
DR. VINCE LUCERO AT PT'S BEDSIDE FOR EVAL
[2022-12-29] MEDS ORDERED: GENT5DRO4 RIGHTEYE (00:44)
[2022-12-29] MEDS ORDERED: OXYC-128 PO (00:44)
--- NOTE | 2022-12-29 01:26 | NUR ---
Patient discharged to home in stable condition. Written and verbal after care instructions given. Patient verbalizes understanding of instruction.
== END 2022-12-29 01:27 | disposition home or self-care (01) ==
LOC: ER 12-29 00:02
DX: S05.01XA Injury of conjunctiva and corneal abrasion without foreign body, right eye, initial encounter (principal); H11.421 Conjunctival edema, right eye; F17.200 Nicotine dependence, unspecified, uncomplicated; Z79.899 Other long term (current) drug therapy; X58.XXXA Exposure to other specified factors, initial encounter; Y93.89 Activity, other specified; Y92.89 Other specified places as the place of occurrence of the external cause; Y99.8 Other external cause status

== ENCOUNTER 2023-02-02 21:42 | Emergency (ER) | payer OTHER ==
[~2023-02-02] VITALS: Ht 185.4 cm; Wt 95.3 kg
[~2023-02-02 21:42] MED LIST changes: +GENT5DRO4 RIGHTEYE; +OXYC-128 PO
[2023-02-02 22:04] VITALS: BP 143/68
[2023-02-02] MEDS ORDERED: KETO10TA2 PO (22:05)
[2023-02-02] MEDS ORDERED: KETOROLAC TROMETHAMINE INJ 30 MG/ML VIAL ONE (22:09)
[2023-02-02] MEDS ORDERED: KETOROLAC TROMETHAMINE INJ 60 MG/2 ML VIAL IM ONE (22:30)
== END 2023-02-02 22:17 | disposition home or self-care (01) ==
LOC: ER 21:44
DX: Z76.0 Encounter for issue of repeat prescription (principal); M54.50 Low back pain, unspecified; F17.200 Nicotine dependence, unspecified, uncomplicated; Z79.899 Other long term (current) drug therapy
CPT/HCPCS: 99283; 96372; J1885

== ENCOUNTER 2023-07-14 22:08 | Emergency (ER) | payer BC, OTHER ==
[~2023-07-14] VITALS: Ht 185.4 cm; Wt 95.3 kg
[~2023-07-14 22:08] MED LIST changes: +KETO10TA2 PO
[2023-07-14] MEDS ORDERED: ONDANSETRON HCL/PF 4 MG/2 ML VIAL ONE (23:52)
[2023-07-15] MEDS ORDERED: ONDANSETRON HCL/PF 4 MG/2 ML VIAL IVP ONE
[2023-07-15] MEDS ORDERED: IV NS 0.9% 1,000 ML BAG IV ONE
[2023-07-15 00:12] LABS: BASOPHILS % (AUTO) 0.3 % (0.0-2.0); EOSINOPHILS % (AUTO) 0.3 % (0.0-6.0); HEMATOCRIT 36 % (39-51); HEMOGLOBIN 12.4 g/dL (13.5-17.5); LYMPHOCYTES % (AUTO) 12.3 % (20.0-44.0); MEAN CORPUSCULAR HEMOGLOBIN 31 PG (26.0-33.0); MEAN CORPUSCULAR HGB CONC 34 g/dl (31.0-36.0); MEAN CORPUSCULAR VOLUME 90 fL (80-96); MONOCYTES # (AUTO) 0.7 K/uL (0.1-1.30); MONOCYTES % (AUTO) 8.1 % (2.0-12.0); NEUTROPHILS # (AUTO) 6.7 K/uL (1.8-8.9); PLATELET COUNT (AUTO) 197 K/uL (150-450); RED BLOOD CELL COUNT(AUTO) 4.02 MIL/uL (4.5-6.0); RED CELL DISTRIBUTION WIDTH 13.2 % (11.5-15.0); WHITE BLOOD COUNT (AUTO) 8.5 K/uL (4.3-11.0)
[2023-07-15] MEDS ORDERED: CEFTRIAXONE 1GM BAG (ER ONLY) 1 GM/50 ML PIGGYBACK IV ONE (00:30)
[2023-07-15 00:32] LABS: ALBUMIN 3.7 g/dL (3.4-5.0); BILIRUBIN,DIRECT 0.2 mg/dL (0.0-0.2); BILIRUBIN,TOTAL 0.6 mg/dL (0.2-1.0); CALCIUM, SERUM 9.5 mg/dL (8.5-10.1); CREATININE 0.9 mg/dL (0.6-1.3); POTASSIUM 3.6 mmol/L (3.5-5.1); TOTAL PROTEIN, SERUM 6.7 g/dL (6.4-8.2)
[2023-07-15] MEDS ORDERED: CEFTRIAXONE 1GM BAG (ER ONLY) 50 ML IV ONE (01:06)
[2023-07-15 02:29] VITALS: BP 122/82; TEMP 98.5; O2SAT 99
== END 2023-07-15 02:35 | disposition home or self-care (01) ==
LOC: ER 22:09
DX: L03.115 Cellulitis of right lower limb (principal); R53.1 Weakness; F17.200 Nicotine dependence, unspecified, uncomplicated; Z98.890 Other specified postprocedural states; Z79.899 Other long term (current) drug therapy; Z60.2 Problems related to living alone
CPT/HCPCS: 99285; 70450; 93005; 36415; 96365; 96361; 96375; 85025; 80048; 80076; J2405; J7030; J0696

== ENCOUNTER 2024-04-22 06:24 | Emergency (ER) | payer BC ==
[~2024-04-22] VITALS: Ht 185.4 cm; Wt 93.0 kg
[2024-04-22 06:30] VITALS: BP 158/88; TEMP 98.9; O2SAT 99
[2024-04-22] MEDS ORDERED: FAMOTIDINE (20 MG) 20 MG TABLET ONE (06:58)
[2024-04-22] MEDS ORDERED: diphenhydrAMINE HCL 50 MG CAPSULE ONE (06:58)
[2024-04-22] MEDS: diphenhydrAMINE HCL 25 MG CAPSULE PO ONE (07:02)
[2024-04-22] MEDS: FAMOTIDINE (20 MG) 20 MG TABLET PO ONE (07:02)
[2024-04-22] MEDS ORDERED: CETI-90 PO (07:14)
[2024-04-22] MEDS ORDERED: DIPH25CA83 PO (07:14)
[2024-04-22] MEDS ORDERED: FAMO-144 PO (07:14)
[2024-04-22] MEDS ORDERED: cetrizine 10 MG TABLET ONE (07:15)
[2024-04-22] MEDS: cetrizine 10 MG TABLET PO ONE (07:17)
== END 2024-04-22 07:25 | disposition home or self-care (01) ==
LOC: ER 06:28
DX: L23.9 Allergic contact dermatitis, unspecified cause (principal); L29.9 Pruritus, unspecified; I10 Essential (primary) hypertension; F32.A Depression, unspecified; F17.200 Nicotine dependence, unspecified, uncomplicated; Z60.2 Problems related to living alone; Z79.899 Other long term (current) drug therapy
CPT/HCPCS: 99284; Q0163